=== PATIENT | female | born 1950 | race Caucasian/White ===

== ENCOUNTER 2016-12-02 18:49 | Emergency (ER) | payer OTHER ==
[~2016-12-02] VITALS: Ht 157.5 cm; Wt 84.5 kg
[~2016-12-02 18:49] MED LIST: HYDR-3498 PO; IBUP-1542 PO; ONDA4TAB35 PO; SIMV20TA2 PO
[2016-12-02 19:03] VITALS: Ht 157.5 cm; Wt 84.5 kg
[2016-12-02] MEDS ORDERED: IBUPROFEN 200 MG TAB PO ONE (21:30)
[2016-12-02 22:08] LABS: ADD UMIC NO; URINE BILIRUBIN (Dip) NEGATIVE (NEGATIVE); URINE BLOOD (Dip) NEGATIVE (NEGATIVE); URINE COLOR LT. YELLOW (YELLOW); URINE GLUCOSE (Dip) NEGATIVE (NEGATIVE); URINE KETONES (Dip) NEGATIVE (NEGATIVE); URINE LEUKOCYTE ESTERASE (Dip) NEGATIVE (NEGATIVE); URINE NITRITE (Dip) NEGATIVE (NEGATIVE); URINE TOTAL PROTEIN (Dip) NEGATIVE (NEGATIVE); URINE UROBILINOGEN (Dip) 0.2 E.U./dL (0.1-1.0)
--- NOTE | 2016-12-02 22:36 | ERD ---
ER Documentation Chief Complaint Date/Time DATE: 12/02/16 TIME: 22:23 Chief Complaint non traumatic back pain today HPI This pleasant 66-year-old female presents to emergency department today with mid low back pain. Patient is brought in by her grandson, reports that symptoms started earlier this morning with no change in symptoms all day. Patient states onset was sudden after having a shower, denies any injury or slip. Patient denies any pre-existing back dysuria, hematuria diarrhea or constipation. ROS All systems reviewed and are negative except as per history of present illness. Medications Home Meds Active Scripts Ondansetron Hcl* (Zofran* ODT) 4 mg -ODT Tab.disper, 4 MG PO Q6 Y for NAUSEA AND /OR VOMITING, #12 TAB Prov:ZAIRA URIAS MD 10/23/15 Hydrocodone Bit-Acetaminophen* (Platter*) 5-325 Mg Tab, 1 TAB PO Q6 Y for PAIN, # 12 TAB Prov:ZAIRA URIAS MD 10/23/15 Reported Medications Ibuprofen* (Ibuprofen*) 600 Mg Tablet, 600 MG PO Q8 Y for PAIN AND/OR INFLAMMATION, TAB 10/23/15 Simvastatin (Simvastatin) 20 Mg Tablet, 20 MG PO HS, TAB 01/19/14 Allergies Allergies: Coded Allergies: Iodine (Verified Allergy, RASHES, 08/13/11) PMhx/Soc History of Surgery: Yes (right foot surgery in October 2013) Anesthesia Reaction: No Hx Neurological Disorder: No Hx Respiratory Disorders: No Hx Cardiac Disorders: Yes (HYPERLIPIDERMIA) Hx Psychiatric Problems: No Hx Miscellaneous Medical Probl: No Hx Alcohol Use: No Hx Substance Use: No Hx Tobacco Use: No Smoking Status: Never smoker Physical Exam Vitals Vital Signs Date Time Temp Pulse Resp B/P Pulse Ox O2 Delivery O2 Flow Rate FiO2 12/02/16 19:03 98.3 82 20 153/82 100 Vitals stable, triage notes reviewed Physical Exam Const: No acute distress Head: Atraumatic Eyes: Normal Conjunctiva PERRLA, EOMI ENT: Neck: Full range of motion. Resp: Cardio: Abd: Generalized bandlike abdominal pain starting at back, mild tenderness, no CVA tenderness Skin: No petechiae or rashes Back: No midline or flank tenderness Ext: Neur: Awake and alert Psych: Normal Mood and Affect Results 24 hrs Laboratory Tests Test 12/02/16 21:50 Urine Color LT. YELLOW Urine Clarity CLEAR Urine pH 5.5 Urine Specific [place] 1.025 Urine Ketones NEGATIVE Urine Nitrite NEGATIVE Urine Bilirubin NEGATIVE Urine Urobilinogen 0.2 E.U./dL Urine Leukocyte Esterase NEGATIVE Urine Hemoglobin NEGATIVE Urine Glucose NEGATIVE% Urine Total Protein NEGATIVE Current Medications Medications (Trade) Dose Ordered Sig/Reji Route PRN Reason Start Time Stop Time Status Last Admin Dose Admin Ibuprofen (Motrin) 400 mg ONCE ONCE PO 12/02/16 21:30 12/02/16 21:31 DC 12/02/16 21:50 Acetaminophen/ Hydrocodone Bitart (Platter (5/325)) 1 tab ONCE ONCE PO 12/02/16 23:00 12/02/16 23:01 DC Interpretation text Urinalysis negative for evidence of infection no leukocytosis, nitrates or microscopic hematuria Procedures/MDM PROCEDURE: Lumbar Spine. CLINICAL INDICATION: Back pain. TECHNIQUE: 2 views of the lumbar spine. COMPARISON: None available FINDINGS: The lumbar lordosis is preserved without spondylolisthesis. The vertebral body heights are maintained. No acute fracture or subluxation is seen. There is degenerate facet arthrosis along the lower lumbar spine. IMPRESSION: 1. No acute fracture or subluxation. 2. Degenerative facet arthrosis along the lower lumbar spine. .Kingsley Ho MD, MD Date Time Electronically viewed and signed by .Kingsley Ho MD, on 12/02/2016 23:01 This pleasant 66-year-old female presents to emergency department today with sudden onset of mid back pain radiating bilaterally to abdomen. Patient has no pre-existing back injury. Reports pain started after this morning shower. Patient has pain with sitting, no alteration with ambulating, cauda equina not suspected. Patient denies any dysuria, hematuria, nausea or vomiting. Compression fracture, herniated disc likely, x-ray findings as follows; the lumbar lordosis is preserved without spondylolisthesis. The vertebral body heights are maintained. No acute fracture or subluxation is seen. There is degenerative facet arthrosis along the lower lumbar spine. Nurse practitioner receives free air and stool on x-ray suspected constipation. Urinalysis negative for leukocytosis, hematuria or nitrates ruling out urinary tract infection. I feel patient can be discharged home with MiraLAX and Platter. I feel the patient is stable for discharge and outpatient management with primary care physician. I have discussed results, examination findings, the treatment plan with the patient and family present prior to discharge. Indications for emergent reevaluation; return to emergency department for worsening of pain, difficulty ambulating, alteration in bowel or bladder. Side effects of medication were also discussed and questions were answered. Patient verbalizes understanding and agrees with plan of care. Departure Diagnosis: Primary Impression: Constipation Constipation type: unspecified constipation type Qualified Code: K59.00 - Constipation, unspecified constipation type Additional Impression: Facet arthritis, degenerative, lumbar spine Condition: Good Patient Instructions: Causes of Lumbar (Low Back) Pain, Constipation (Adult) [facility] Additional Instructions: Thank you for for coming to [facility] for your care today. Please ask your nurse or provider if you have questions about your care today and do not leave until all your questions have been answered. Please use any medications given as directed and follow-up with your doctor (or the doctor you were referred to) in the next 2-3 days. If you do not have a primary care doctor you may follow up at the [facility] - [place], [place] (listed below). You may also use motrin and tylenol as needed for fever and/or pain unless instructed otherwise by your provider or nurse. Indications for more urgent follow-up have been discussed, but you may return to the Emergency Department at ANY time for any worrisome or worsening symptoms. If you have abdominal pain, please know that no test or exam you received is perfect and you should follow up within 8 hours for continued pain. If you had any imaging studies today, such as an X-Ray or CT Scan, these studies will be reviewed later by a radiologist. You will be called if there are important findings that were not identified today, so make sure the contact information you provided at registration is correct. If you received any narcotic pain control medicine today, such as Vicodin, Morphine or Dilaudid, your coordination and judgment may be affected for a number of hours. Please do not drive or operate heavy machinery, and you may want someone to assist you at home. If you were given a prescription for narcotic medication, be aware that it is very addictive- use sparingly and only if necessary. ESPERANZA CEE December 02, 2016 22:33
[2016-12-02] MEDS ORDERED: HYDROCODONE/APAP (5/325) TAB PO ONE (23:00)
--- NOTE | 2016-12-02 23:01 | RADRPT ---
PROCEDURE: Lumbar Spine. CLINICAL INDICATION: Back pain. TECHNIQUE: 2 views of the lumbar spine. COMPARISON: None available FINDINGS: The lumbar lordosis is preserved without spondylolisthesis. The vertebral body heights are maintaine d. No acute fracture or subluxation is seen. There is degenerate facet arthrosis along the lower [place] mbar spine. IMPRESSION: 1. No acute fracture or subluxation. 2. Degenerative facet arthrosis along the lower lumbar spine. RPTAT: HTAR .Kingsley Ho MD, Date Time Electronically viewed and signed by .Kingsley Ho MD, on 12/02/2016 23:01 .R/
[2016-12-02] MEDS ORDERED: POLY17PO6 PO (23:18)
[2016-12-02] MEDS ORDERED: HYDR-906 PO (23:18)
== END 2016-12-02 23:50 | disposition home or self-care (01) ==
LOC: FTE 18:49
DX: K59.00 Constipation, unspecified (principal); M47.816 Spondylosis without myelopathy or radiculopathy, lumbar region
CPT/HCPCS: 72100; 81003